=== PATIENT | female | born 1955 | race Caucasian/White ===

== ENCOUNTER 2020-05-03 14:38 | Emergency (ER) | payer BC, MEDICARE ==
[~2020-05-03] VITALS: Ht 170.2 cm; Wt 100.0 kg
[2020-05-03] MEDS ORDERED: IV NORMAL SALINE 1,000ML 1,000 ML IV ONE (14:45)
[2020-05-03] MEDS ORDERED: FAMOTIDINE 20 MG/2 ML VIAL IVP ONE (15:15)
[2020-05-03] MEDS ORDERED: IOHEXOL 300 MG/ML 75 ML VIAL. IV ONE (15:15)
[2020-05-03] MEDS ORDERED: ONDANSETRON PF 4 MG/2 ML VIAL. IVP ONE (15:15)
[2020-05-03 15:21] VITALS: BP 156/97
[2020-05-03] MEDS ORDERED: CONTRAST GIVEN MC PRN (15:30)
[2020-05-03 15:34] LABS: BASO % 0 % (0-3); EOS # 0.1 x10^3/uL (0.0-0.7); EOS % 1 % (0-3); HEMATOCRIT 41.2 % (36.0-47.0); LYMPH # 1.2 x10^3/uL (1.0-4.8); LYMPH % 11 % (24-48); MEAN CORPUSCULAR HEMOGLOBIN 29 pg (25-35); MEAN CORPUSCULAR HGB CONC 34 g/dL (31-37); MEAN CORPUSCULAR VOLUME 86 fL (79-100); MONO # 0.8 x10^3/uL (0.0-1.1); MONO % 7 % (0-9); NEUT % 81 % (31-73); PLATELET COUNT 219 x10^3/uL (140-400); RED BLOOD COUNT 4.77 x10^6/uL (3.50-5.40); RED CELL DISTRIBUTION WIDTH 13.5 % (11.5-14.5); WHITE BLOOD COUNT 11.2 x10^3/uL (4.0-11.0)
[2020-05-03 15:46] LABS: CALCIUM 9.4 mg/dL (8.5-10.1); GFR 55.6; POTASSIUM 3.4 mmol/L (3.5-5.1)
[2020-05-03 15:49] LABS: ALBUMIN 3.7 g/dL (3.4-5.0); ALBUMIN/GLOBULIN RATIO 1.1 (1.0-1.7); MAGNESIUM 1.7 mg/dL (1.8-2.4); TOTAL BILIRUBIN 1.1 mg/dL (0.2-1.0); TOTAL PROTEIN 7.1 g/dL (6.4-8.2)
--- NOTE | 2020-05-03 16:32 | RAD ---
EXAM: Abdomen and pelvis CT with intravenous contrast. HISTORY: Pain. TECHNIQUE: Computed tomographic images of the abdomen and pelvis were obtained following the administration of intravenous contrast. Multiplanar reformatting was performed. *One or more of the following individualized dose reduction techniques were utilized for this examination: 1. Automated exposure control. 2. Adjustment of the mA and/or kV according to patient size. 3. Use of iterative reconstruction technique. COMPARISON: None. FINDINGS: Evaluation of the lower thorax is unremarkable. There is hepatomegaly and hepatic steatosis. There is a granuloma within the right hepatic lobe. There is a 1.4 cm hypodense lesion within the left hepatic lobe. Their is a gastric lap band. The spleen is normal in size for body habitus. The adrenal glands are unremarkable. The pancreas is unremarkable. There is a dilated right renal pelvis, likely due to an extrarenal pelvis. There is no hydronephrosis. There is a small cyst within the upper pole of the left kidney. No solid renal lesion is seen. The gallbladder is unremarkable. There is a dilated appendix with surrounding stranding due to acute appendicitis. No perforation or abscess is seen. There are few surrounding reactive nodes. There is trace pericolonic fluid at the descending-sigmoid colon junction, possibly due to the sequela of prior inflammation or aforementioned changes within the right lower quadrant. The urinary bladder is unremarkable. There is a small hypodense lesion within the uterus, possibly a tiny lipoma. The ovaries are unremarkable. There is formed stool within the rectal vault suggesting a component of constipation. There is aortic atherosclerosis. There is no suspicious osseous lesion. There is degenerative change at the mid and lower lumbar levels. There is grade 1 anterolisthesis with pars defects at L5-S1. There is scoliosis. IMPRESSION: 1. Acute appendicitis. There is no evidence of perforation or abscess. 2. Hepatomegaly and hepatic steatosis. 3. Findings suggesting constipation. 4. Gastric lap band. 5. 1.4 cm hypodense lesion within the left hepatic lobe. In the absence of known malignancy, this is likely a cyst or hemangioma. 6. Tiny hypodense lesion within the uterus. This may be due to a lipoma or cystic degeneration of a uterine fibroid. 7. Grade 1 anterolisthesis with pars defects at L5-S1. Electronically signed by: Sabrina Varghese MD (05/03/2020 4:29 PM) [facility]
--- NOTE | 2020-05-03 16:49 | PHYS DOC ---
Past History Past Medical History: Depression, GERD, High Cholesterol, Hypertension Past Surgical History: Other Additional Past Surgical Histo: lapband; bunyonectomies Smoking: Non-smoker Alcohol Use: None Drug Use: None General Adult EDM: Chief Complaint: FEVER HPI: HPI: 65-year-old female presents with report of fever T-max 101, generalized malaise, nausea, and right lower quadrant abdominal pain. Patient reports symptoms started last night. Patient reports she was able to eat dinner with her family and subsequently started to feel uncomfortable. Reports she took some Tums that seem to help. Reports waking this morning with considerable pain now to her rig ht lower quadrant. Patient reported no vomiting. Patient reports she did have a hard bowel movement this morning and thought she might of "strained something ". 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 Denies known exposure to COVID-19. Denies recent travel. Patient reports last p.o. was some neha bam around 1300. Last meal was yesterday evening for dinner. Denies cough or shortness of air. Denies dysuria or hematuria. Review of Systems: Review of Systems: Constitutional: Reports fever, chills, and generalized malaise Eyes: Denies redness or eye pain HENT: Denies nasal congestion or sore throat Respiratory: Denies cough or shortness of breath Cardiovascular: Denies chest pain or palpitations GI: Reports abdominal pain, nausea, and constipation; denies diarrhea or nausea : Denies dysuria or hematuria Musculoskeletal: Denies back pain or joint pain Integument: Denies rash or skin lesions Neurologic: Denies headache, focal weakness or sensory changes Complete systems were reviewed and found to be within normal limits, except as documented in this note. Current Medications: Current Meds: Current Medications Medications (Trade) Dose Ordered Sig/Melissa Start Time Stop Time Status Last Admin Dose Admin Famotidine (Pepcid Vial) 20 mg 1X ONCE 05/03/20 15:15 05/03/20 15:16 DC 05/03/20 15:15 20 MG Info (Do NOT chart on this entry -- for MONITORING) 1 each PRN DAILY PRN 05/03/20 15:30 05/05/20 15:29 Iohexol (Omnipaque 300 Mg/ml) 75 ml 1X ONCE 05/03/20 15:15 05/03/20 15:22 DC 05/03/20 16:06 60 ML Ondansetron HCl (Zofran) 4 mg 1X ONCE 05/03/20 15:15 05/03/20 15:16 DC 05/03/20 15:14 4 MG Sodium Chloride 1,000 ml @ 1,000 mls/hr 1X ONCE 05/03/20 14:45 05/03/20 15:44 DC 05/03/20 15:13 1,000 MLS/HR Allergies: Allergies: Allergies Coded Allergies Type Severity Reaction Last Updated Verified No Known Drug Allergies 05/03/20 No Physical Exam: PE: Constitutional: Well developed, well nourished, uncomfortable, non-toxic appearance HENT: Normocephalic, atraumatic Eyes: Conjunctiva normal, no discharge Neck: Normal range of motion, no tenderness, supple Lungs & Thorax: No respiratory distress, equal chest rise and fall Abdomen: Soft, focal RLQ tenderness, rebound tenderness, no distention or guarding Skin: Warm, dry, no erythema, no rash Back: No tenderness, no CVA tenderness Extremities: No tenderness, ROM intact, no edema Neurologic: Alert and oriented X 3, no focal deficits noted Psychologic: Affect normal, judgment normal Current Patient Data: Labs: Laboratory Tests Test 05/03/20 15:00 White Blood Count 11.2 x10^3/uL (4.0-11.0) H Red Blood Count 4.77 x10^6/uL (3.50-5.40) Hemoglobin 14.0 g/dL (12.0-15.5) Hematocrit 41.2 % (36.0-47.0) Mean Corpuscular Volume 86 fL (79-100) Mean Corpuscular Hemoglobin 29 pg (25-35) Mean Corpuscular Hemoglobin Concent 34 g/dL (31-37) Red Cell Distribution Width 13.5 % (11.5-14.5) Platelet Count 219 x10^3/uL (140-400) Neutrophils (%) (Auto) 81 % (31-73) H Lymphocytes (%) (Auto) 11 % (24-48) L Monocytes (%) (Auto) 7 % (0-9) Eosinophils (%) (Auto) 1 % (0-3) Basophils (%) (Auto) 0 % (0-3) Neutrophils # (Auto) 9.0 x10^3uL (1.8-7.7) H Lymphocytes # (Auto) 1.2 x10^3/uL (1.0-4.8) Monocytes # (Auto) 0.8 x10^3/uL (0.0-1.1) Eosinophils # (Auto) 0.1 x10^3/uL (0.0-0.7) Basophils # (Auto) 0.0 x10^3/uL (0.0-0.2) Prothrombin Time 10.4 SEC (9.4-11.4) Prothrombin Time INR 1.0 (0.9-1.1) Activated Partial Thromboplast Time 25 SEC (23-33) Sodium Level 141 mmol/L (136-145) Potassium Level 3.4 mmol/L (3.5-5.1) L Chloride Level 98 mmol/L (98-107) Carbon Dioxide Level 32 mmol/L (21-32) Anion Gap 11 (6-14) Blood Urea Nitrogen 11 mg/dL (7-20) Creatinine 1.0 mg/dL (0.6-1.0) Estimated GFR (Cockcroft-Gault) 55.6 BUN/Creatinine Ratio 11 (6-20) Glucose Level 141 mg/dL (70-99) H Lactic Acid Level 2.0 mmol/L (0.4-2.0) Calcium Level 9.4 mg/dL (8.5-10.1) Magnesium Level 1.7 mg/dL (1.8-2.4) L Total Bilirubin 1.1 mg/dL (0.2-1.0) H Aspartate Amino Transferase (AST) 23 U/L (15-37) Alanine Aminotransferase (ALT) 42 U/L (14-59) Alkaline Phosphatase 52 U/L (46-116) Total Protein 7.1 g/dL (6.4-8.2) Albumin 3.7 g/dL (3.4-5.0) Albumin/Globulin Ratio 1.1 (1.0-1.7) Lipase 85 U/L (73-393) Vital Signs: Vital Signs Date Time Temp Pulse Resp B/P (MAP) Pulse Ox O2 Delivery O2 Flow Rate FiO2 05/03/20 15:21 99.9 104 24 156/97 (116) 95 EKG: EKG: [] Radiology/Procedures: Radiology/Procedures: PROCEDURE: CT ABD PELV W/ IV CONTRST ONLY EXAM: Abdomen and pelvis CT with intravenous contrast. HISTORY: Pain. TECHNIQUE: Computed tomographic images of the abdomen and pelvis were obtained following the administration of intravenous contrast. Multiplanar reformatting was performed. *One or more of the following individualized dose reduction techniques were utilized for this examination: 1. Automated exposure control. 2. Adjustment of the mA and/or kV according to patient size. 3. Use of iterative reconstruction technique. COMPARISON: None. FINDINGS: Evaluation of the lower thorax is unremarkable. There is hepatomegaly and hepatic steatosis. There is a granuloma within the right hepatic lobe. There is a 1.4 cm hypodense lesion within the left hepatic lobe. Their is a gastric lap band. The spleen is normal in size for body habitus. The adrenal glands are unremarkable. The pancreas is unremarkable. There is a dilated right renal pelvis, likely due to an extrarenal pelvis. There is no hydronephrosis. There is a small cyst within the upper pole of the left kidney. No solid renal lesion is seen. The gallbladder is unremarkable. There is a dilated appendix with surrounding stranding due to acute appendicitis. No perforation or abscess is seen. There are few surrounding reactive nodes. There is trace pericolonic fluid at the descending-sigmoid colon junction, possibly due to the sequela of prior inflammation or aforementioned changes within the right lower quadrant. The urinary bladder is unremarkable. There is a small hypodense lesion within the uterus, possibly a tiny lipoma. The ovaries are unremarkable. There is formed stool within the rectal vault suggesting a component of constipation. There is aortic atherosclerosis. There is no suspicious osseous lesion. There is degenerative change at the mid and lower lumbar levels. There is grade 1 anterolisthesis with pars defects at L5-S1. There is scoliosis. IMPRESSION: 1. Acute appendicitis. There is no evidence of perforation or abscess. 2. Hepatomegaly and hepatic steatosis. 3. Findings suggesting constipation. 4. Gastric lap band. 5. 1.4 cm hypodense lesion within the left hepatic lobe. In the absence of known malignancy, this is likely a cyst or hemangioma. 6. Tiny hypodense lesion within the uterus. This may be due to a lipoma or cystic degeneration of a uterine fibroid. 7. Grade 1 anterolisthesis with pars defects at L5-S1. Electronically signed by: Sabrina Varghese MD (05/03/2020 4:29 PM) [facility] Course & Med Decision Making: Course & Med Decision Making Pertinent Labs and Imaging studies reviewed. (See chart for details) Patient presents with focal right lower quadrant abdominal pain with associated fever at home. Patient does report some associated nausea as well. Concern for possible appendicitis. 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 Denies known specific exposure. COVID precautions therefore applied. Labs obtained and posted to chart. CT abdomen/pelvis with findings confirmatory for acute appendicitis. Empiric Zosyn provided. Patient requiring transfer for admission to facility with general surgery coverage for further evaluation and treatment. Discussed with Dr. Earl (hospitalist) who is in agreement with admission at [facility]. Discussed case with Dr. Navarrete (general surgery) who is in agreement with consultation. COVID testing obtained and sent out. Discussed findings and plan with patient, who acknowledges understanding and agreement. Sherri Disclaimer: Sherri Disclaimer: This electronic medical record was generated, in whole or in part, using a voice recognition dictation system. Departure Departure: Impression: Primary Impression: Acute appendicitis Qualified Codes: K35.30 - Acute appendicitis with localized peritonitis, without perforation or gangrene Disposition: ADMITTED INPATIENT Condition: GUARDED Referrals: PCP,NO (PCP) Justification of Admission: Justification of Admission: Justification of Admission Dx: Yes Comments: acute appendicitis Critical Care Time Critical care time was 30 minutes which includes time at bedside, spent in discussion of patient's care with specialists and/or family members, with interpretation of laboratory and/or radiological studies and is exclusive of procedures. ISI MUÑOZ DO May 03, 2020 16:49
[2020-05-03] MEDS ORDERED: IV NORMAL SALINE 50ML 50 ML ONE (16:53)
[2020-05-03] MEDS ORDERED: PIPERACILLIN/TAZOBACTAM 3.375 GM VIAL IV ONE (16:54)
[2020-05-03 16:57] LABS: CLARITY,URINE HAZY; COLOR,URINE YELLOW
[2020-05-03 16:58] LABS: BILIRUBIN,URINE NEG (NEG); GLUCOSE,URINE NEG (NEG); NITRITE,URINE NEG (NEG); UROBILINOGEN,URINE 0.2 mg/dL (0.2 mg/dL)
[2020-05-03 17:05] LABS: BACTERIA,URINE MOD /HPF (0-FEW); SQUAMOUS EPITHELIAL CELL,UR MOD /LPF; WBC,URINE >40 /HPF (0-4)
[2020-05-03] MEDS ORDERED: PIPERACILLIN/TAZOBACTAM 3.375 GM in IV NORMAL SALINE 50ML 50 ML IV ONE (17:30)
== END 2020-05-03 18:45 | disposition short-term general hospital (02) ==
LOC: ER 14:38
DX: K35.30 Acute appendicitis with localized peritonitis, without perforation or gangrene (principal); K21.9 Gastro-esophageal reflux disease without esophagitis; E78.00 Pure hypercholesterolemia, unspecified; I10 Essential (primary) hypertension; Z20.828 Contact with and (suspected) exposure to other viral communicable diseases
CPT/HCPCS: 36415; 74177; 80053; 81001; 83605; 83690; 83735; 85025; 85610; 85730; 87086; 87299; 96365; 96375; 99285; J2405; J2543; J3010; J3490; J7030; Q9967; 96360; 96372; 99283

== ENCOUNTER → 2020-12-06 | Outpatient (CLI) | payer MEDICARE ==
--- NOTE | 2020-12-07 09:56 | RAD ---
Thyroid ultrasound without comparison for multinodular goiter. TECHNIQUE AND FINDINGS: Real-time grayscale and color Doppler evaluation of the thyroid gland is perf ormed. The right lobe measures 4.8 x 1.8 x 1.8 cm in the left is enlarged measuring 7.2 x 3.0 x 2.3 c m. The isthmus measures 5 mm in thickness. There is normal blood flow throughout the gland. The curre nt echotexture is homogeneous save for multiple nodules. At the inferior aspect of the right lobe of the thyroid gland there is a solid very hypoechoic nodule with a wider than tall profile, smooth jose angel ins, no internal echogenic foci, measuring 0.8 x 0.7 x 0.6 cm, corresponding to a TR 4 lesion. More m edially in the right lobe, adjacent to the isthmus, is a second solid hypoechoic smoothly marginated wider than tall lesion with no internal echogenic foci measuring 1.1 x 0.8 x 0.6 cm, also constitutin g a TR 4 lesion. In the inferior aspect the left lobe of the thyroid gland, there is a solid isoechoi c wider than tall nodule with smooth margins and no internal echogenic foci measuring 1.8 x 1.3 x 1.4 cm, constituting a TR 3 nodule. Several additional smaller nodules are also noted. No adjacent adeno jn is seen. IMPRESSION: 1. Multinodular thyroid as described. There are 2 TR 4 nodules in the right and there is one TR 3 nod ule on the left, none of which meet size criteria for FNA. ACR TI-RADS 2017 Composition - cystic or completely cystic: Benign, no further score - spongiform: Benign, no further score - mixed cystic and Solid: 1 point - solid or almost completely solid: 2 points Echogenicity - anechoic: 0 points - hyper- or isoechoic: 1 point - hypoechoic: 2 points - very hypoechoic: 3 points Shape (assess on transverse plane) - wider than tall: 0 points - taller than wide: 3 points Margin - smooth: 0 points - ill-defined: 0 points - lobulated/irregular: 2 points - extra-thyroidal extension: 3 points Echogenic Foci - none: 0 points - large comet tail artifact: 1 point - peripheral/rim calcifications: 2 points - punctate echogenic foci: 3 points TR1 - 0-1 points; Benign TR2 - 2 points; Not Suspicious TR3 - 3 points; Mildly Suspicious; Follow-up at 1,3,5 years for >= 1.5cm and FNA for >=2.5cm TR4 - 4-6 points; Moderately Suspicious; Follow-up at 1,2,3,5 years for >= 1.0cm and FNA for >= 1.5cm TR5 - 7+ points; Highly Suspicous; Follow=up at 1,2,3,4,5 years for >= 0.5cm and FNA for >= 1.0cm Notes: Only score and report the Four highest scoring nodules. Significant interval enlargement on fo llow-uup is defined as >20% and > 2mm in two dimensions or > 50% increase in volume. If there are mul tiple nodules, the two with the highest ACR TI-RADS score should be sampled, rather than the two larg est. Electronically signed by: Chilango Hilliard MD (12/07/2020 9:53 AM) [id number]
== END ==
LOC: US 13:42
PROVIDERS: ATTEND Physician Assistant Medical
DX: E04.2 Nontoxic multinodular goiter (principal)
CPT/HCPCS: 76536

== ENCOUNTER → 2021-10-16 | Outpatient (CLI) | payer MEDICARE ==
--- NOTE | 2021-10-16 15:57 | RAD ---
EXAM: AP, oblique and lateral views of the right knee DATE: 10/16/2021 1:05 PM INDICATION: Reason: PAIN, NKI / Spl. Instructions: / History: COMPARISON: No Prior FINDINGS: No acute fracture or dislocation. Subtle lucency is seen in the subchondral medial right femoral cond yle. Joint spaces are grossly preserved. No knee joint effusion. IMPRESSION: No acute fracture or dislocation. Subtle lucency subchondral medial right femoral condyle may represent subchondral cystic change. Gusman raquel joint spaces are grossly preserved Electronically signed by: Dave Valdovinos MD (10/16/2021 3:55 PM) [id number]
== END ==
LOC: RAD 11:34
PROVIDERS: ATTEND Physician Assistant Medical
DX: M25.861 Other specified joint disorders, right knee (principal); M25.561 Pain in right knee
CPT/HCPCS: 73562